=== PATIENT | female | born 1980 | race African-American/Black ===

== ENCOUNTER 2024-08-23 10:22 | Emergency (ER) | payer MEDICAID ==
[~2024-08-23] VITALS: Ht 162.6 cm; Wt 67.2 kg
[2024-08-23 10:32] VITALS: O2SAT 100
[2024-08-23] MEDS: LIDOCAINE 5% PATCH TOP SCH (12:52)
[2024-08-23] MEDS: CYCLOBENZAPRINE 10MG TABLET PO ONE (12:52)
[2024-08-23] MEDS: KETOROLAC 30MG/ML VIAL IM ONE (12:52)
[2024-08-23 14:28] VITALS: BP 136/75; PULSE 53; RESP 18; TEMP 36.8; O2SAT 100
[2024-08-23] MEDS ORDERED: KETO10TA2 MT (14:41)
[2024-08-23] MEDS ORDERED: LIDO700A30 TP (14:41)
[2024-08-23] MEDS ORDERED: CYCL10TA21 MT (14:41)
== END 2024-08-23 15:03 | disposition home or self-care (01) ==
LOC: ER 10:22
DX: M47.812 Spondylosis without myelopathy or radiculopathy, cervical region (principal); M47.814 Spondylosis without myelopathy or radiculopathy, thoracic region; M47.816 Spondylosis without myelopathy or radiculopathy, lumbar region; Z79.899 Other long term (current) drug therapy; V89.2XXA Person injured in unspecified motor-vehicle accident, traffic, initial encounter; Y93.89 Activity, other specified; Y92.89 Other specified places as the place of occurrence of the external cause; Y99.8 Other external cause status
CPT/HCPCS: 99284; 81025; 72040; 72070; 72100; 96372; J1885